=== PATIENT | male | born 1940 | race Two or more races ===

== ENCOUNTER 2018-04-12 17:31 | Emergency (ER) | payer OTHER ==
[~2018-04-12] VITALS: Ht 172.7 cm; Wt 81.6 kg
[~2018-04-12 17:31] MED LIST: HUMULIN N100 U/ML; LANTUS100 U/ML
== END 2018-04-12 23:53 | disposition home or self-care (01) ==
LOC: ER 17:31
DX: R42 Dizziness and giddiness (principal); E11.65 Type 2 diabetes mellitus with hyperglycemia

== ENCOUNTER 2019-06-27 15:03 | Emergency (ER) | payer OTHER ==
[~2019-06-27] VITALS: Ht 172.7 cm; Wt 65.8 kg
[2019-06-27] MEDS ORDERED: TOPROL XL25 MG (15:32)
[2019-06-27] MEDS ORDERED: PROSCAR5 MG (15:32)
[2019-06-27] MEDS ORDERED: ZOCOR20 MG (15:33)
[2019-06-27] MEDS ORDERED: COZAAR25 MG (15:33)
[2019-06-27] MEDS ORDERED: TAMS0.4C (15:33)
[2019-06-27] MEDS ORDERED: JANUMET 50-1,01 EACH (15:33)
[2019-06-27] MEDS ORDERED: NEURONTIN600 M1 (15:34)
== END 2019-06-27 18:58 | disposition home or self-care (01) ==
LOC: ER 15:03
DX: R42 Dizziness and giddiness (principal)

== ENCOUNTER 2020-06-10 09:18 | Outpatient (CLI) | payer OTHER ==
[~2020-06-10 09:18] MED LIST changes: +COZAAR25 MG; +JANUMET 50-1,01 EACH; +NEURONTIN600 M1; +PROSCAR5 MG; +TAMS0.4C; +TOPROL XL25 MG; +ZOCOR20 MG
== END 2020-06-10 09:20 | disposition home or self-care (01) ==
LOC: RAD 09:18
PROVIDERS: ATTEND Specialist
DX: J45.998 Other asthma (principal)

== ENCOUNTER 2021-06-21 02:00 | Emergency (ER) | payer OTHER ==
[~2021-06-21] VITALS: Ht 172.7 cm; Wt 72.6 kg
== END 2021-06-21 18:16 | disposition home or self-care (01) ==
LOC: ER 02:00
DX: E13.649 Other specified diabetes mellitus with hypoglycemia without coma (principal); Z79.899 Other long term (current) drug therapy; Z79.84 Long term (current) use of oral hypoglycemic drugs; I10 Essential (primary) hypertension

== ENCOUNTER 2021-09-30 08:48 | Outpatient (CLI) | payer OTHER | END 2021-09-30 09:00 | disposition home or self-care (01) | LOC: TOM 08:48 | PROVIDERS: ATTEND Specialist | DX: C7A.022 Malignant carcinoid tumor of the ascending colon (principal) ==

== ENCOUNTER 2021-12-30 20:15 | Emergency (ER) | payer OTHER ==
[~2021-12-30] VITALS: Ht 172.7 cm; Wt 113.9 kg
== END 2021-12-31 00:29 | disposition home or self-care (01) ==
LOC: ER 20:15
DX: E11.649 Type 2 diabetes mellitus with hypoglycemia without coma (principal); I10 Essential (primary) hypertension; Z79.4 Long term (current) use of insulin; T38.3X5A Adverse effect of insulin and oral hypoglycemic [antidiabetic] drugs, initial encounter

== ENCOUNTER 2022-04-11 17:12 | Emergency (ER) | payer OTHER ==
[~2022-04-11] VITALS: Ht 172.7 cm; Wt 72.6 kg
== END 2022-04-11 23:01 | disposition home or self-care (01) ==
LOC: ER 17:12
DX: B34.9 Viral infection, unspecified (principal); E11.9 Type 2 diabetes mellitus without complications; Z91.013 Allergy to seafood

== ENCOUNTER 2022-04-28 13:20 | Outpatient (CLI) | payer OTHER | END 2022-04-28 13:29 | disposition home or self-care (01) | LOC: RAD 13:20 | PROVIDERS: ATTEND Specialist | DX: J45.998 Other asthma (principal) ==

== ENCOUNTER 2023-06-13 11:09 | Outpatient (CLI) | payer OTHER | END 2023-06-13 11:13 | disposition home or self-care (01) | LOC: RAD 11:09 | PROVIDERS: ATTEND Specialist | DX: M21.761 Unequal limb length (acquired), right tibia (principal); M21.751 Unequal limb length (acquired), right femur ==